=== PATIENT | male | born 1965 | race Hispanic/Latino ===

== ENCOUNTER 2021-01-25 21:36 | Emergency (ER) | payer SELFPAY ==
[~2021-01-25] VITALS: Ht 170.2 cm; Wt 83.9 kg
== END 2021-01-25 23:20 | disposition home or self-care (01) ==
LOC: ED 21:36
DX: B34.9 Viral infection, unspecified (principal); Z20.822 Contact with and (suspected) exposure to COVID-19
CPT/HCPCS: 99284; C9803; U0003

== ENCOUNTER 2024-12-15 03:03 | Emergency (ER) | payer OTHER ==
[~2024-12-15] VITALS: Ht 170.2 cm; Wt 75.7 kg
[2024-12-15] MEDS ORDERED: SUCRALFATE 1 GM TAB PO ONE (03:30)
[2024-12-15] MEDS ORDERED: PANTOPRAZOLE SODIUM 40 MG/10 ML VIAL IV ONE (03:30)
[2024-12-15] MEDS ORDERED: KETOROLAC TROMETHAMINE 30 MG/ML VIAL IV ONE (03:30)
[2024-12-15] MEDS ORDERED: LIDOCAINE & ANTACID 35 ML BTL PO ONE (03:30)
[2024-12-15 03:36] LABS: BASOPHILS 0.9 % (0.2-1.2); EOSINOPHILS 1.1 % (0.8-7.0); LYMPHOCYTES 25.7 % (21.8-53.1); MCH 28.3 PG (25.7-32.2); MCHC 33.7 g/dL (32.3-36.5); MCV 84.2 fL (79.0-92.2); MONOCYTES 6.0 % (5.3-12.2); NEUTROPHILS 66.0 % (34.0-67.9); RBC 4.87 M/uL (4.63-6.08)
[2024-12-15 03:51] LABS: ALT (SGPT) 26.0 U/L (14-59); AST (SGOT) 13.0 U/L (15-37); GLOMERULAR FILTRATION RATE,EST 92.0 mL/min (>60); PROTEIN, TOTAL 7.0 g/dL (6.4-8.2); UREA NITROGEN 11.0 mg/dL (7-18)
[2024-12-15] MEDS ORDERED: SODIUM CHLORIDE 0.9% 500 ML IV PRN (04:00)
[2024-12-15 04:05] LABS: INFLUENZA B NAA NEGATIVE (NEGATIVE); RESPIRATORY SYNCYTIAL VIR NAA NEGATIVE (NEGATIVE)
[2024-12-15] MEDS ORDERED: CARAFATE1 GM PO (04:11)
[2024-12-15] MEDS ORDERED: ONDANSETRON ODT8 MG PO (04:11)
[2024-12-15] MEDS ORDERED: CYCLOBENZAPRINE10 MG PO (04:11)
[2024-12-15] MEDS ORDERED: ONDANSETRON 4 MG HOME.PACK SL ONE (04:15)
[2024-12-15] MEDS ORDERED: CYCLOBENZAPRINE HCL 10 MG HOME.PACK PO ONE (04:15)
[2024-12-15 05:14] VITALS: BP 130/99
== END 2024-12-15 05:16 | disposition home or self-care (01) ==
LOC: ED 03:03
PROVIDERS: Family Medicine
DX: B34.9 Viral infection, unspecified (principal); R10.13 Epigastric pain
CPT/HCPCS: 36415; 80053; 83690; 83735; 85025; 87502; 96361; 96374; 96375; 99284-25; A9270; J1885; J2405; J2470; J7040; U0002

== ENCOUNTER 2024-12-18 17:05 | Emergency (ER) | payer OTHER ==
[~2024-12-18] VITALS: Ht 170.2 cm; Wt 76.0 kg
[~2024-12-18 17:05] MED LIST: CARAFATE1 GM PO; CYCLOBENZAPRINE10 MG PO; ONDANSETRON ODT8 MG PO
--- OUTSIDE RECORDS SUMMARY | 2024-12-18 17:12 | XMS ---
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 Taylor VISIT COUNT (12 MO.) [address] [place] [address] TOTAL 3 NOTE: Visits indicate total known visits. ED/UCC VISIT TRACKING (12 MO.) 12/18/2024 17:06 [facility] TYPE: Emergency COMPLAINT: - HEADACHE 12/16/2024 12:06 [facility] TYPE: Emergency COMPLAINT: - HEADACHE DIAGNOSES: - Headache, unspecified - Other terminal make up operator (current) drug therapy - Viral infection, unspecified 12/15/2024 03:05 [facility] TYPE: Emergency COMPLAINT: - FLU SYMPTOMS INPATIENT VISIT TRACKING (12 MO.) No inpatient visits to display in this time frame [email or web address]
[2024-12-18] MEDS ORDERED: PROCHLORPERAZINE EDISYLATE 10 MG/2 ML VIAL IV ONE (18:00)
[2024-12-18 18:02] LABS: BASOPHILS 0.4 % (0.2-1.2); EOSINOPHILS 0.3 % (0.8-7.0); LYMPHOCYTES 8.6 % (21.8-53.1); MCH 28.7 PG (25.7-32.2); MCHC 33.5 g/dL (32.3-36.5); MCV 85.6 fL (79.0-92.2); MONOCYTES 3.0 % (5.3-12.2); NEUTROPHILS 87.4 % (34.0-67.9); RBC 4.78 M/uL (4.63-6.08)
[2024-12-18 18:12] LABS: ALT (SGPT) 22.0 U/L (14-59); AST (SGOT) 15.0 U/L (15-37); GLOMERULAR FILTRATION RATE,EST 99.0 mL/min (>60); PROTEIN, TOTAL 7.0 g/dL (6.4-8.2); UREA NITROGEN 7.0 mg/dL (7-18)
[2024-12-18] MEDS ORDERED: HYDROmorphone HCL 1 MG/ML SYR IV ONE (19:00)
[2024-12-18] MEDS ORDERED: HYDROmorphone HCL 1 MG/ML SYR IV PRN (21:30)
[2024-12-18] MEDS ORDERED: LABETALOL HCL 20 MG/4 ML VIAL IV ONE (21:30)
[2024-12-18 21:37] LABS: BLOOD/HGB, URINE NEGATIVE (Negative); KETONE, URINE NEGATIVE (Negative); LEUK ESTERASE, URINE NEGATIVE (negative); NITRITE, URINE NEGATIVE (negative)
[2024-12-18 22:13] VITALS: BP 130/83
== END 2024-12-18 22:06 | disposition short-term general hospital (02) ==
LOC: ED 17:05
PROVIDERS: Emergency Medicine
DX: I60.2 Nontraumatic subarachnoid hemorrhage from anterior communicating artery (principal); H53.149 Visual discomfort, unspecified; R11.2 Nausea with vomiting, unspecified; Z79.899 Other long term (current) drug therapy
CPT/HCPCS: 36415; 70450; 70496; 80053; 81003; 85025; 96374; 96375; 96376; 99285-25; J0780; J1171; J1200; Q9967